=== PATIENT | female | born 1975 | race Caucasian/White ===

== ENCOUNTER → 2017-03-19 | Outpatient (CLI) | payer OTHER | LOC: KOH-I 10:56 | DX: R13.10 Dysphagia, unspecified (principal); J35.1 Hypertrophy of tonsils; R59.0 Localized enlarged lymph nodes | CPT/HCPCS: 70492; Q9962 ==

== ENCOUNTER 2020-06-28 13:08 | Emergency (ER) | payer OTHER ==
[2020-06-28] MEDS ORDERED: MEDROL DOSEPAK 24 MG PO (17:20)
[2020-06-28] MEDS ORDERED: Voltaren Gel 1 % TOP (17:20)
== END 2020-06-28 17:34 | disposition home or self-care (01) ==
LOC: ER1 13:08
DX: M54.5 Low back pain (principal); G89.29 Other chronic pain; M51.26 Other intervertebral disc displacement, lumbar region; K21.9 Gastro-esophageal reflux disease without esophagitis; F17.210 Nicotine dependence, cigarettes, uncomplicated; Z87.39 Personal history of other diseases of the musculoskeletal system and connective tissue; Z88.6 Allergy status to analgesic agent; Z88.5 Allergy status to narcotic agent; Z88.8 Allergy status to other drugs, medicaments and biological substances; Z88.2 Allergy status to sulfonamides
CPT/HCPCS: 72131; 96372; 99283; J1100

== ENCOUNTER → 2020-07-22 | Outpatient (CLI) | payer OTHER ==
[~2020-07-22] MED LIST: MEDROL DOSEPAK 24 MG PO; Voltaren Gel 1 % TOP
== END ==
LOC: EMI 14:04
DX: M54.5 Low back pain (principal); D18.09 Hemangioma of other sites
CPT/HCPCS: 72148